=== PATIENT | female | born 1945 | race Caucasian/White ===

== ENCOUNTER 2020-11-08 11:14 | Day surgery (SDC) | payer MEDICARE, OTHER ==
[2020-11-02 11:58] VITALS: BMI 29.0
--- NOTE | 2020-11-07 16:39 | HP ---
HISTORY AND PHYSICAL REASON FOR ADMISSION: Surgery is scheduled for 11/08/2020 Kaycee Cruz is a 75-year-old patient seen with symptomatic right knee osteoarthritis. We discussed options for treatment. She elected to proceed with a right total knee arthroplasty. Consent was obtained. Medical clearance provided by Dr. Saeid Nunn. PAST MEDICAL HISTORY: Hypertension. PAST SURGICAL HISTORY: Noncontributory. MEDICATIONS: Lisinopril/hydrochlorothiazide. ALLERGIES: None. SOCIAL HISTORY: She denies tobacco use. PHYSICAL EVALUATION OF THE RIGHT KNEE: Range of motion is -2/3-90. Mild effusion. Tenderness medial joint line. Crepitus medial patellofemoral compartments with range of motion. Pain with patellofemoral compression. Ligaments stable. Hip rotation without pain. Distal neurovascular exam is intact. RADIOGRAPHS: Right knee radiographs reveal severe osteoarthritic changes. IMPRESSION: 1. Right knee osteoarthritis. 2. Hypertension. PLAN: Right total knee arthroplasty. Surgery 11/08/2020. MMODL / IJN: [id number] /
[~2020-11-08 11:14] MED LIST: ACETAMINOPHEN TAB 500 MG TAB PO PRN; HYDROmorphone 0.5 MG/0.5 ML SYRINGE IVP PRN; LIDOCAINE 1% (10MG/ML) FOR IV START INTRADERMA PRN; MELOXICAM 7.5 MG TAB PO PRN; ONDANSETRON 4 MG/2 ML VIAL IVP ONE; ROPIVACAINE/EPI/CLONIDINE/KET 50 ML SYRINGE MISCELLANE PRN; TRANEXAMIC ACID 1,000 MG in SODIUM CHLORIDE 0.9% 100 ML IVPB PRN
[2020-11-08] MEDS: LACTATED RINGERS 1,000 ML IV SCH ×2 (12:21→20:33)
[2020-11-08] MEDS ORDERED: MIDAZOLAM 2 MG/2 ML VIAL IV ONE ×2 (12:26→12:29)
[2020-11-08] MEDS ORDERED: MIDAZOLAM 2 MG/2 ML VIAL ONE (12:56)
[2020-11-08] MEDS ORDERED: SODIUM CHLORIDE 0.9% 100 ML BAG ONE (12:56)
[2020-11-08] MEDS ORDERED: fentaNYL (PF) 50 MCG/ML 2 ML AMP ONE (12:56)
[2020-11-08] MEDS ORDERED: ROPIVACAINE 5 MG/ML 30 ML VIAL ONE (12:56)
[2020-11-08] MEDS ORDERED: TRANEXAMIC ACID 1,000 MG/10 ML VIAL ONE (12:56)
[2020-11-08] MEDS ORDERED: LIDOCAINE 1% INJ 10MG/ML (20 ML MDV) ONE (12:56)
[2020-11-08] MEDS ORDERED: DEXAMETHASONE SOD PHOSPHATE 4 MG/ML 1 ML VIAL ONE (12:56)
[2020-11-08] MEDS ORDERED: PROPOFOL 10 MG/ML 20 ML VIAL IV ONE (12:56)
[2020-11-08] MEDS ORDERED: ceFAZolin 1,000 MG in SODIUM CHLORIDE 0.9% 1,000 ML IRRIGATION ONE (13:30)
--- NOTE | 2020-11-08 13:37 | P.ANPRN ---
Procedure Note - Anesthesia - Nerve Block Performed Right Adductor Canal Infusion Time Out Performed: Yes Date of Procedure: 11/08/20 Procedure Start Time: 12:25 Procedure Stop Time: 12:36 Location of Patient: PreOp Indication: Acute Post-Operative Pain, Requested by Surgeon Sedation Type: Sedate with meaningful contact maintained Preparation: Sterile Prep, Sterile Dressing Position: Supine Catheter: Indwelling Needle Types: Pajunk Needle Gauge: 18 Ultrasound used to visualize needle placement: Yes Ultrasound used to observe medication spread: Yes Injectate: 0.5% Ropivacaine (see comment for volume) (15 ml + decadron 4 mg) Blood Aspirated: No Pain Paresthesia on Injection Noted: No Resistance on Injection: Normal Image Stored and Saved: Yes Events: Uneventful and Well Tolerated Right iPack Single Time Out Performed: Yes Date of Procedure: 11/08/20 Procedure Start Time: 12:37 Procedure Stop Time: 12:43 Location of Patient: PreOp Indication: Acute Post-Operative Pain, Requested by Surgeon Sedation Type: Sedate with meaningful contact maintained Preparation: Sterile Prep, Sterile Dressing Position: Left Lateral Catheter: None Needle Types: Facet Needle Gauge: 20 Ultrasound used to visualize needle placement: Yes Ultrasound used to observe medication spread: Yes Injectate: 0.5% Ropivacaine (see comment for volume) (15 ml + decadron 4 mg) Blood Aspirated: No Pain Paresthesia on Injection Noted: No Resistance on Injection: Normal Image Stored and Saved: Yes Events: Uneventful and Well Tolerated
[2020-11-08] MEDS ORDERED: HYDROmorphone 0.2 MG/1 ML SYRINGE IVP PRN (14:33)
[2020-11-08] MEDS ORDERED: ONDANSETRON 4 MG/2 ML VIAL IVP PRN (14:33)
[2020-11-08] MEDS ORDERED: HYDROmorphone 0.5 MG/0.5 ML SYRINGE IVP PRN ×2 (14:33)
[2020-11-08] MEDS ORDERED: NALOXONE 0.4 MG/ML 1 ML VIAL IV PRN (14:33)
[2020-11-08] MEDS ORDERED: HYDROcodone/APAP 5-325MG 1 EACH TAB PO PRN ×2 (14:33)
--- NOTE | 2020-11-08 14:33 | P.OP ---
Date of Procedure: 11/08/20 Preoperative Diagnosis: Right knee osteoarthritis Postoperative Diagnosis: Right knee osteoarthritis Procedure(s) Performed: Right total knee arthroplasty Implants: 1. Depuy attune size 5 right narrow cruciate retaining cemented femur 2. Depuy attune size 4 fixed bearing cemented tibial baseplate 3. Depuy attune size 5 fixed bearing cruciate retaining 8 mm polyethylene tibial insert 4. Depuy attune 38 mm all polyethylene cemented patella Anesthesia: regional (Adductor canal catheter, I pack block), local, spinal Surgeon: Anthony Rogers Sales Expert [employer]: Davon Pope Estimated Blood Loss (ml): 45 Pathology: other (Bone) Condition: stable Disposition: PACU Indications for Procedure: 75-year-old patient seen with symptomatic right knee osteoarthritis. After treatment options were discussed, she elected to proceed with total knee arthroplasty. Operative Findings: See description of procedure Description of Procedure: Patient was taken to the operative suite after having an adductor canal catheter placed by the department of anesthesia as well as an I pack block for postoperative pain management. Patient underwent a spinal anesthetic by the department of anesthesia. Patient was given preoperative IV intake antibiotics and TXA. A well-padded tourniquet was placed about the right lower extremity. The lower extremity was then prepped and draped in the normal sterile orthopedic fashion. The extremity was elevated, a tourniquet was insufflated to 300. A standard anterior incision was made sharply through skin. Dissection was taken down through the subcutaneous soft tissues down to the extensor mechanism. A medial arthrotomy was performed, patella was everted and knee was flexed. There was advanced osteoarthritis noted. I introduced my distal intramedullary femoral drill. I then introduced the distal femoral cutting jig. Osiel MCINTOSH secured the cutting jig with 2 pins. I held retractors in position while Osiel MCINTOSH performed the distal femoral resection through the guide area we now removed her distal femoral cutting guide. We now placed our 4-in-1 femoral cutting block and positioned and it was secured with 2 pins by Osiel MCINTOSH while I held the block in position. The distal femoral finishing was now completed. A proximal tibial cutting guide was positioned. I held the guide in the appropriate position with both hands well Osiel MCINTOSH inserted stabilizing pins into the guide. Proximal tibial cut was made. We now placed a trial femoral component into position, along with an appropriate size tibial tray and insert. We now took the knee through range of motion and had full extension good flexion and good overall soft tissue balance noted. The patella was everted and stabilized with 2 towel clips held by Osiel MCINTOSH while I performed a flush with patellar quad tendon utilizing a fresh sawblade. We templated the patella, appropriate drill holes were made. An appropriate trial patella was positioned, knee was taken through full range of motion with the patella tracking very nicely. The trial patella was removed. Drill holes were made through the femoral component. All trial components were removed after marking off the appropriate rotation of the tibia. Retractors were now positioned along the proximal tibia. An appropriate keel punch was made with the appropriate size tibial guide by myself on Osiel MCINTOSH assisted by holding retractors. At this point appropriate size implants were chosen and opened. The joint was irrigated copiously with pulse lavage mechanical irrigati on. The posterior capsule was infiltrated with local analgesic. The wound was irrigated with pulse lavage mechanical irrigation. We mixed antibiotic methylmethacrylate. We placed the knee into flexion. We placed multiple retractors assisted by Osiel MCINTOSH to expose the proximal tibia. Once the methyl methacrylate was ready, the tibial component was cemented into place removing any excess methylmethacrylate form by both myself and Osiel MCINTOSH. The femoral component was cemented into place removing the removing any excess methylmethacrylate performed by both myself and Osiel MCINTOSH. We then inserted the appropriate size polyethylene tibial insert. We made sure that it was locked into position. We took the knee into full extension, and then back in a flexion making sure we had removed any excess methylmethacrylate. The patellar component was then cemented down and secured with clamp. Excess methylmethacrylate removed. We kept the knee in full extension, patellar clamp in position until methylmethacrylate had hardened. Once it had hardened the patellar clamp was removed. The knee was taken through full range of motion. The patella tracked nicely. There was good soft tissue balancing. The tourniquet was now released. Additional hemostasis was achieved via electrocautery. A second gram of TXA was given. The wound again was irrigated with pulse lavage mechanical irrigation. The superficial soft tissues were infiltrated local analgesic. The extensor mechanism was repaired with Vicryl. We checked the repair with range of motion and it was stable. The subcutaneous soft tissues were repaired with Vicryl in layers. The skin was approximated with pernio/Dermabond. Sterile dressings were applied followed by loose web roll and Juanpablo bandage. The patient was transferred to a bed, and taken to recovery in stable and satisfactory condition. Osiel MCINTOSH assisted with this complex procedure.
[2020-11-08] MEDS ORDERED: ROPIVACAINE 0.2%-NS ON-Q PUMP 1,090 MG, EMPTY PAIN BALL 1 EACH MISCELLANE PRN (15:15)
--- NOTE | 2020-11-08 15:32 | XR ---
EXAMINATION TYPE: XR knee limited RT DATE OF EXAM: 11/08/2020 CLINICAL HISTORY: Right knee pain and arthritis status post total knee replacement. TECHNIQUE: Portable AP and crosstable lateral views of the right knee are obtained immediately posto peratively. COMPARISON: Outside right knee x-ray August 27, 2020 FINDINGS: Metallic hardware from total right knee arthroplasty is seen and appears satisfactory in a lignment and position. There is evidence of recent surgery with diffuse subcutaneous gas and soft ti ssue swelling noted. IMPRESSION: METALLIC HARDWARE FROM TOTAL RIGHT KNEE ARTHROPLASTY IS SATISFACTORY IN ALIGNMENT.
[2020-11-08] MEDS ORDERED: LACTATED RINGERS 1,000 ML IV ONE (16:51)
[2020-11-08] MEDS ORDERED: ATORVASTATIN 10 MG TAB PO SCH (21:00)
[2020-11-08] MEDS ORDERED: SENNOSIDES-DOCUSATE SODIUM 1 EACH TAB PO SCH (21:00)
--- NOTE | 2020-11-08 22:30 | CONS ---
CONSULTATION DATE OF SERVICE: 11/08/2020 REASON FOR CONSULTATION: Advice regarding hypertension and hyperlipidemia requested by Dr. Rogers. HISTORY OF PRESENT ILLNESS: This 75-year-old woman with a past medical history of hypertension, hyperlipidemia and DJD being followed by Dr. Saeid Nunn in the outpatient setting underwent right total knee joint arthroplasty by Dr. Rogers. The patient tolerated the procedure. There is no history of fever or rigors. No headache or seizures at this time. No chest pain or palpitations. PAST MEDICAL HISTORY: Hypertension, hyperlipidemia and DJD. History of colonoscopy. HOME MEDICATIONS: Calcium with vitamin D3, potassium chloride, magnesium oxide, cranberry, Tylenol, simvastatin, lisinopril, hydrochlorothiazide. ALLERGIES: None. FAMILY HISTORY: No history of heart disease or strokes in the family. SOCIAL HISTORY: No history of smoking, no history of alcohol. REVIEW OF SYSTEMS: ENT: No diminished hearing or diminished vision. CARDIOVASCULAR: No angina. RESPIRATORY: As mentioned earlier. GI: As mentioned earlier. NERVOUS SYSTEM: No numbness or weakness. ALLERGY/IMMUNOLOGY: No asthma or hayfever. MUSCULOSKELETAL: As mentioned. HEMATOLOGY: No history of anemia. ENDOCRINE: No history of diabetes type or hypothyroidism. CONSTITUTIONAL: As mentioned earlier. DERMATOLOGY: Negative. RHEUMATOLOGY: Negative. PSYCHIATRY: Negative. PHYSICAL EXAMINATION: Alert and oriented times three. Pulse 83, blood pressure 119/74, respirations 16, temperature 97.8, pulse ox 98% on room air. HEENT: Conjunctivae normal. NECK: No JVD. CARDIOVASCULAR: S1, S2 muffled. RESPIRATORY: Breath sounds diminished in the bases. No rhonchi, no crackles. ABDOMEN: Soft, nontender. No mass palpable. LEGS: Status post right knee arthroplasty. NERVOUS SYSTEM: Higher functions as mentioned earlier. Moves all 4 limbs. No focal motor or sensory deficits. LYMPHATICS: No lymph nodes palpable in the neck, axillae or groin. SKIN: No ulcer, rash or bleeding. JOINTS: No active deforming arthropathy. LABS: Covid-19 is negative. ASSESSMENT: 1. Status post right total knee arthroplasty. 2. Hypertension. 3. Hyperlipidemia. 4. History of degenerative joint disease. 5. History of colonoscopy. RECOMMENDATIONS AND DISCUSSION: In this 75-year-old woman who presented with multiple complex medical issues, we will monitor the patient closely. Resume the home medications. DVT prophylaxis. Otherwise, recommend incentive spirometry. Repeat labs in the morning. The patient may be asked to follow up with Dr. Saeid Nunn closely in the outpatient setting. Thank you, Dr. Rogers for letting us participate in the care of this patient. MMJOSHUAL / FLORENTINN: [id number] /
[2020-11-09 03:32] VITALS: RESP 16
[2020-11-09] MEDS: LACTATED RINGERS 1,000 ML IV SCH ×2 (04:48→04:51)
[2020-11-09] MEDS ORDERED: ENOXAPARIN 30 MG/0.3 ML SYRINGE SQ SCH (06:00)
[2020-11-09] MEDS ORDERED: POTASSIUM CHLORIDE ER 10 MEQ TAB.ER.PRT PO SCH (09:00)
[2020-11-09] MEDS ORDERED: LISINOPRIL-HCTZ 20-25 MG 1 EACH TAB PO SCH (09:00)
[2020-11-09] MEDS ORDERED: CALCIUM CARB-VIT D 500 MG-5 MCG TAB PO SCH (09:00)
[2020-11-09] MEDS ORDERED: MAGNESIUM OXIDE 400 MG TAB PO SCH (09:00)
[2020-11-09] MEDS ORDERED: CHOLECALCIFEROL 25 MCG (1000 IU) TABLET PO SCH (09:00)
[2020-11-09 09:25] VITALS: BP 106/67; PULSE 67; TEMP 98.1
[2020-11-09 11:07] LABS: Basophils # (A) 0.01 X 10*3/uL (0.00-0.10); Basophils % (A) 0.1 %; Eosinophils # (A) 0 X 10*3/uL (0.04-0.35); Eosinophils % (A) 0 %; HCT 37.1 % (37.2-46.3); HGB 12.1 g/dL (12.0-15.0); Lymphocytes # (A) 0.65 X 10*3/uL (0.90-5.00); Lymphocytes % (A) 4.8 %; MCH 30.5 pg (27.0-32.0); MCHC 32.6 g/dL (32.0-37.0); MCV 93.5 fL (80.0-97.0); Mean Platelet Volume 11.2 fL (9.5-12.2); Monocytes # (A) 1.05 X 10*3/uL (0.20-1.00); Monocytes % (A) 7.8 %; Neutrophils # (A) 11.63 X 10*3/uL (1.80-7.70); Neutrophils % (A) 86.7 %; Platelet Count 257 X 10*3/uL (140-440); RBC 3.97 X 10*6/uL (4.10-5.20); RDW 12.4 % (11.5-14.5); WBC 13.42 X 10*3/uL (4.50-10.00)
[2020-11-09 13:02] LABS: African American GFR (CKD) 84.8 (60.0-200.0); Anion Gap 9.6 mmol/L (4.00-12.00); Carbon Dioxide 26.4 mmol/L (21.6-31.8); Non-African American GFR(CKD) 73.1 (60.0-200.0); Potassium 3.9 mmol/L (3.5-5.5)
--- NOTE | 2020-11-09 13:26 | P.DS ---
Providers Date of admission: 11/08/2020 Expected date of discharge: 11/09/20 Attending physician: Anthony Rogers Consults: 11/08/20 14:33 Consult Physician Routine Consulting Provider: Angelo Liang Consult Reason/Comments: Medical management Do you want consulting provider notified?: Yes Primary care physician: Thomas Morris [facility] Course: Date of admission: 11/08/2020 Date of discharge: 11/09/2020 Admission diagnosis: Right knee osteoarthritis Discharge diagnosis: Same Attending physician: Dr. Rogers Surgical procedures: Right total knee arthroplasty Brief history: Patient is a 75-year-old female with a history of progressive primary right knee osteoarthritis. At this point patient has failed conservative treatment measures and has opted to proceed with a elective right total knee arthroplasty. Hospital course: Details of patient's surgery can be found in operative report. Patient tolerated the procedure well and was subsequently transported to orthopedic floor. Patient's orthopeidc and medical care was provided daily. Patient had daily laboratory tests performed for evaluation of overall blood counts . Patient had daily physical therapy to include strengthening range of motion as well as education with walker ambulation. Patient was treated with Lovenox for their postoperative DVT prophylaxis during their inpatient stay. Patient was noted to have a relatively uneventful postoperative course. Patient reported satisfactory pain control with oral pain medications by postoperative day 1. Patient showed satisfactory progress with physical therapy. Patient moved steadily through the program and had no difficulty meeting the goals by postoperative day 1. Given patient's otherwise satisfactory course and having met physical therapy goals, plan is to discharge patient home on postoperative day 1. Discharge condition/disposition: Patient will be discharged home in stable condition. Discharge medications: Instructions are given on resumption of patient's normal daily medications per primary care recommendation, in addition patient will be prescribed [place] 5 mg/325 mg; aspirin 81 mg twice a day 30 days; Zofran 4 mg when necessary. Discharge instructions: 1. Wound care and infection precautions, keep incision dry and covered while showering, no lotions, creams, moisturizers. No soaking, tubs, pools, hottubs. Do not scrub over the incision. 2. Weight-bear as tolerated with walker / cane until follow-up. 3. Ice and elevate when necessary. Do not exceed 20 minutes per hour with ice pack. 4. Utilize compression sleeve until seen at first follow up appointment. 5. Visiting nursing care. 6. Home physical therapy including home CPM. 7. Pain meds and anticoagulants per prescription. 8. Pain medication has potential to cause constipation. Increase oral fluid and fiber intake. Contact primary care provider if you have not had a bowel movement within 48 hours after discharge 9. No anti-inflammatory medication until discussed at first post operative visit, this including Motrin, Aleve, Mobic, Diclofenac. 10. Follow up in office at 2 weeks postop with Osiel Pope PA-C / Joshua Reynolds PA-C 11. Follow up with your primary care doctor 7-10 days after discharge. 12. Contact [facility] with any questions, . Assessment: Right knee osteoarthritis Procedures: Right total knee arthroplasty Patient Condition at Discharge: Good Plan - Discharge Summary Discharge Rx Participant: Yes New Discharge Prescriptions: New Aspirin [Adult Low Dose Aspirin EC] 81 mg PO BID #60 tablet. Ondansetron [Zofran] 4 mg PO Q12HR PRN #6 tab PRN Reason: Nausea HYDROcodone/APAP 5-325MG [Leeds 5-325] 1 tab PO Q6HR PRN #42 tab PRN Reason: Pain No Action Cranberry Fruit Concentrate [Azo Cranberry] 250 mg PO DAILY Potassium Chloride 10 meq PO DAILY Dagoberto/D3/Mag11/Zinc/Relationship Banker/Graham/Bor [Caltrate 600+D Plus Tablet] 1 each PO DAILY Magnesium Oxide [Mag-Ox] 400 mg PO DAILY Acetaminophen Tab [Tylenol] 325 mg PO DIRECTED PRN PRN Reason: Pain Simvastatin [Zocor] 20 mg PO HS Cholecalciferol [Vitamin D3 (25 Mcg = 1000 Iu)] 50 mcg PO DAILY Lisinopril-Hctz 20-25 mg [Zestoretic 20-25] 1 tab PO DAILY Naproxen Sodium [Aleve] 220 mg PO Q12HR PRN PRN Reason: Pain Discharge Medication List Acetaminophen Tab [Tylenol] 325 mg PO DIRECTED PRN 11/02/20 [History] Dagoberto/D3/Mag11/Zinc/Relationship Banker/Graham/Bor [Caltrate 600+D Plus Tablet] 1 each PO DAILY 11/02/20 [History] Cholecalciferol [Vitamin D3 (25 Mcg = 1000 Iu)] 50 mcg PO DAILY 11/02/20 [History] Cranberry Fruit Concentrate [Azo Cranberry] 250 mg PO DAILY 11/02/20 [History] Lisinopril-Hctz 20-25 mg [Zestoretic 20-25] 1 tab PO DAILY 11/02/20 [History] Magnesium Oxide [Mag-Ox] 400 mg PO DAILY 11/02/20 [History] Naproxen Sodium [Aleve] 220 mg PO Q12HR PRN 11/02/20 [History] Potassium Chloride 10 meq PO DAILY 11/02/20 [History] Simvastatin [Zocor] 20 mg PO HS 11/02/20 [History] Aspirin [Adult Low Dose Aspirin EC] 81 mg PO BID #60 tablet. 11/09/20 [Rx] HYDROcodone/APAP 5-325MG [Leeds 5-325] 1 tab PO Q6HR PRN #42 tab 11/09/20 [Rx] Ondansetron [Zofran] 4 mg PO Q12HR PRN #6 tab 11/09/20 [Rx] Follow up Appointment(s)/Referral(s): [facility]ipment [NON-STAFF] - As Needed (Continuous Passive Motion knee machine) [facility], [NON-STAFF] - As Needed Davon Pope PAC [PHYSICIAN CATALYTIC CONVERTER OPERATOR] - 2 Weeks Patient Instructions/Handouts: Knee Replacement (GEN) Activity/Diet/Wound Care/Special Instructions: Orthopedic Discharge Instructions: 1. Wound care and infection precautions, [keep incision dry and covered while showering], no lotions, creams, moisturizers. No soaking, pools, hot tubs. Do not scrub over incision. 2. Weight-bear [as tolerated] with walker / cane until follow-up. 3. Ice and elevate when necessary. Do not exceed 20 minutes per hour with ice pack. 4. Utilize compression sleeve until seen at first follow up appointment. 5. Pain meds and anticoagulants per prescription. 6. Pain medication has potential to cause constipation. Increase oral fluid and fiber intake. Contact primary care provider if you have not had a bowel movement within 48 hours after discharge. 7. No anti-inflammatory medication until discussed at first post operative visit, this including Motrin, Aleve, Mobic, Diclofenac. 8. Follow up in office at 2 weeks postop with Osiel Pope PA-C / Joshua Reynolds PA-C 9. Follow up with your primary care doctor 7-10 days after discharge. 10. Contact [facility] with any questions, . Keep silver foam dressing on for 7-10 days. While showering, please cover silver foam dressing with Saran wrap. Silver foam dressing may be removed in 7- 10 days. Discharge Disposition: HOME WITH HOME HEALTH SERVICES
--- NOTE | 2020-11-09 13:44 | P.PN ---
Subjective Progress Note Date: 11/09/20 Principal diagnosis: Right knee osteoarthritis Patient was seen this morning resting comfortably in chair with right leg elevated. Patient says physical therapy went very well this morning and she is ready to go home. She says she is not in any pain. She says she normally does not take any pain medication whatsoever and says she occasionally takes Aleve. Patient says she has been using incentive spirometer throughout the morning. Patient denies having bowel movement yet. She says she has been passing gas. Patient denies any chest pain, shortness breath, fever, nausea, vomiting, change in vision. Objective - Vital Signs Vital signs: Vital Signs Temp 98.1 F 11/09/20 07:00 Pulse 67 11/09/20 07:00 Resp 16 11/09/20 07:00 BP 106/67 11/09/20 07:00 Pulse Ox 96 11/09/20 07:00 Intake & Output 11/08/20 11/09/20 11/09/20 18:59 06:59 18:59 Intake Total 1051 1040 Output Total 335 600 Balance 716 440 Weight 80.3 kg Intake: IV 1051 Intake, IV Titration 1040 Amount Lactated Ringers 1,000 ml 840 @ 70 mls/hr IV .[id number] [facility] Rx#:[id number] ceFAZolin 2 gm In Sodium 100 Chloride 0.9% 50 ml @ 100 mls/hr IVPB ONCE PRN Rx# :[id number] ceFAZolin 2 gm In Sodium 100 Chloride 0.9% 50 ml @ 100 mls/hr IVPB Q8H [facility] Rx#: [id number] Output: Urine 300 600 Estimated Blood Loss 35 Other: Voiding Method Toilet # Voids 1 1 - Exam Incision is clean, dry, and intact. The exofin fusion tape is in good condition. There is minimal soft tissue swelling and ecchymosis surrounding the medial and lateral aspects of the incision. Calf is soft, no tenderness with palpation. Plantar flexion, dorsiflexion, EHL, FHL are intact. Sensory exam to light touch throughout the extremity is intact, dorsal pedis pulses 2+. - Labs CBC & Chem 7: 11/09/20 07:13 11/09/20 07:13 Labs: Abnormal Lab Results - Last 24 Hours (Table) 11/09/20 11/09/20 Range/Units 07:13 07:13 WBC 13.42 H (4.50-10.00) X 10*3/uL RBC 3.97 L (4.10-5.20) X 10*6/uL Hct 37.1 L (37.2-46.3) % Immature Gran # 0.08 H (0.00-0.04) X 10*3/uL Neutrophils # 11.63 H (1.80-7.70) X 10*3/uL Lymphocytes # 0.65 L (0.90-5.00) X 10*3/uL Monocytes # 1.05 H (0.20-1.00) X 10*3/uL Eosinophils # 0 L (0.04-0.35) X 10*3/uL BUN 28.0 H (9.0-27.0) mg/dL BUN/Creatinine Ratio 35.00 H (12.00-20.00) Ratio Glucose 124 H (70-110) mg/dL Assessment and Plan Assessment: Postoperative day 1 status post right total knee arthroplasty Plan: 1. Right knee osteoarthritis- total knee arthroplasty performed yesterday, 11/08/2020. Patient seen at bedside this morning resting comfortably in in minimal pain. Patient will be discharged home today, 11/09/2020. 2. Pain management - stable at this time. Will be discharged home with O'Brien 5 mg/325mg. 3. DVT prophylaxis/GI prophylaxis- patient going home with aspirin 81 mg twice a day 30 days. Take stool softener as needed. 4. Weight-bear as tolerated/with walker. 5. PT/OT 6. Discharge planning - patient will be discharged today 11/09/2020, will be going home. Time with Patient: Less than 30
--- NOTE | 2020-11-09 17:26 | PN ---
PROGRESS NOTE DATE OF SERVICE: 11/09/2020 INTERVAL HISTORY: This is a 75-year-old woman who was admitted after right total knee arthroplasty improving significantly. No chest pain. No palpitations. No fever. PHYSICAL EXAMINATION: GENERAL: Alert and oriented x3. VITAL SIGNS: Pulse 67, blood pressure 106/66, respirations 16, temperature 98.2, pulse ox 97% on room air. HEENT: Conjunctivae normal. NECK: No jugular venous distention. No carotid bruits. RESPIRATORY: Breath sounds diminished at the bases. A few scattered rhonchi. HEART: S1 and S2, muffled. ABDOMEN: Soft, no tenderness. . EXTREMITIES: No edema, no swelling. NERVOUS: No focal deficits. LABS: WBC 13.4, hemoglobin 12.1 sodium 141, potassium 3.9. ASSESSMENT: 1. Status post right total knee arthroplasty. 2. Hypertension. 3. Hyperlipidemia. 4. History of degenerative joint disease. 5. History of colonoscopy. RECOMMENDATIONS AND DISCUSSION: I recommend to continue current medications, continue symptomatic treatment. Otherwise at this time, recommend close followup with primary physician in the outpatient setting. Resume the home medications. The rest of the recommendations per Orthopedic surgery. Thank you, Dr. Rogers. MMODL / IJN: [id number] /
== END 2020-11-09 14:47 | disposition home health service (06) ==
LOC: OR 11:14 → 4SSUR 16:44 → OR 11-09 14:47
PROVIDERS: ATTEND Orthopaedic Surgery
DX: M17.11 Unilateral primary osteoarthritis, right knee (principal); Z20.822 Contact with and (suspected) exposure to COVID-19; I10 Essential (primary) hypertension; Z79.899 Other long term (current) drug therapy; Z79.82 Long term (current) use of aspirin
CPT/HCPCS: 97110; 97161; 64999; 64448; 76942; 80048; 85025; 88300; 87635; 73560; 27447; C1776; C1713; J2250; J1100; J0690 ×3; J2405; J2001; J3010; J1650; J2795 ×2; J2704

== ENCOUNTER 2021-03-21 08:15 | Day surgery (SDC) | payer MEDICARE, OTHER ==
[2021-03-17 15:24] VITALS: BMI 27.6
--- NOTE | 2021-03-20 12:02 | HP ---
HISTORY AND PHYSICAL DATE OF SURGERY: 03/21/2021 Kaycee Cruz is a 75-year-old patient seen with right knee adhesions with history of previous total knee arthroplasty. We discussed options. She elected to proceed with manipulation under anesthesia of the right knee. Consent was obtained. PAST MEDICAL HISTORY: Hyperlipidemia, hypertension. PAST SURGICAL HISTORY: Right total knee arthroplasty. DAILY MEDICATIONS: Atorvastatin, lisinopril/hydrochlorothiazide, [place], Aleve. ALLERGIES: NONE. SOCIAL HISTORY: She denies tobacco use. PHYSICAL EVALUATION OF THE RIGHT KNEE: Her anterior incision is well healed. Range of motion is negative 6/7 to 105 degrees. She has some quadriceps weakness. Her distal neurovascular exam is intact. RADIOGRAPHS: Right knee radiographs revealed a stable-appearing total knee arthroplasty. IMPRESSION: 1. Right knee adhesions. 2. History of right total knee arthroplasty. 3. Hypertension. 4. Hyperlipidemia. PLAN: Right knee manipulation under anesthesia. MMODL / IJN: [id number] /
[~2021-03-21 08:15] MED LIST changes: -ACETAMINOPHEN TAB 500 MG TAB PO PRN; +DEXAMETHASONE SOD PHOSPHATE 4 MG/ML 1 ML VIAL IV ONE; +LACTATED RINGERS 1,000 ML IV SCH; -MELOXICAM 7.5 MG TAB PO PRN; +MIDAZOLAM 2 MG/2 ML VIAL IV PRN; -ROPIVACAINE/EPI/CLONIDINE/KET 50 ML SYRINGE MISCELLANE PRN; -TRANEXAMIC ACID 1,000 MG in SODIUM CHLORIDE 0.9% 100 ML IVPB PRN
[2021-03-21 08:50] VITALS: TEMP 97.8
[2021-03-21 09:21] VITALS: RESP 16
[2021-03-21] MEDS ORDERED: LIDOCAINE 1% INJ 10MG/ML (20 ML MDV) ONE (09:27)
[2021-03-21] MEDS ORDERED: PROPOFOL 10 MG/ML 20 ML VIAL IV ONE (09:27)
[2021-03-21] MEDS ORDERED: KETOROLAC 15 MG/ML 1 ML VIAL ONE (09:37)
[2021-03-21] MEDS ORDERED: KETOROLAC 15 MG/ML 1 ML VIAL IVP ONE (09:38)
--- NOTE | 2021-03-21 09:44 | P.OP ---
Date of Procedure: 03/21/21 Preoperative Diagnosis: Right knee adhesions Postoperative Diagnosis: Right knee adhesions Procedure(s) Performed: Manipulation under anesthesia right knee Anesthesia: MAC Surgeon: Anthony Rogers Estimated Blood Loss (ml): 0 Pathology: none sent Condition: stable Disposition: PACU Indications for Procedure: 75-year-old patient seen with persistent right knee adhesions with history of previous total knee arthroplasty. After discussing options for treatment, she elected to proceed with manipulation under anesthesia right knee. Consent was obtained. Operative Findings: See description of procedure Description of Procedure: The patient was taken to a monitored anesthesia area. She underwent IV sedation by the department of anesthesia. Once sufficient adequate anesthesia was noted I performed a manipulation of the right knee achieving near full extension and 140 of flexion with audible tearing of the adhesions. The patient was awakened having tolerated procedure well.
[2021-03-21] MEDS ORDERED: LACTATED RINGERS 1,000 ML IV ONE (10:02)
[2021-03-21 10:33] VITALS: BP 140/82; PULSE 73
== END 2021-03-21 11:09 | disposition home or self-care (01) ==
LOC: OR 08:15
PROVIDERS: ATTEND Orthopaedic Surgery
DX: M23.8X1 Other internal derangements of right knee (principal); I10 Essential (primary) hypertension; E78.5 Hyperlipidemia, unspecified; Z96.651 Presence of right artificial knee joint; Z79.1 Long term (current) use of non-steroidal anti-inflammatories (NSAID); Z79.891 Long term (current) use of opiate analgesic; Z79.899 Other long term (current) drug therapy
CPT/HCPCS: 27570; J1100; J2405; J2001; J1885; J2704; J1170